=== PATIENT | male | born 2005 | race Caucasian/White ===

== ENCOUNTER 2023-08-25 10:17 | Emergency (ER) | payer OTHER, SELFPAY ==
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
[2023-08-25 10:24] VITALS: BP 127/65; PULSE 104; RESP 18; TEMP 36.2; O2SAT 100
[2023-08-25 10:58] VITALS: BP 120/68; PULSE 100; RESP 18; TEMP 36.2
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
== END 2023-08-25 11:30 | disposition home or self-care (01) ==
PROVIDERS: Emergency Provider Emergency Medicine
DX: S43.402A Unspecified sprain of left shoulder joint, initial encounter (principal); V18.4XXA Pedal cycle driver injured in noncollision transport accident in traffic accident, initial encounter
CPT/HCPCS: 73030; 99283